=== PATIENT | female | born 1960 | race Caucasian/White ===

== ENCOUNTER 2017-11-14 08:03 | Outpatient (CLI) | payer OTHER ==
[2017-11-14 12:49] LABS: CHOLESTEROL 238 mg/dL; GLUCOSE,FASTING 103 mg/dL (70-100); HDL CHOLESTEROL 40 mg/dL; LDL CHOLESTEROL,CALCULATED 171 mg/dL; LDL/HDL RATIO 4.3 (<4.4); VLDL CHOLESTEROL 27 mg/dL
== END 2017-11-14 08:04 | disposition home or self-care (01) ==
LOC: LAB.F 08:03
PROVIDERS: ATTEND Internal Medicine
DX: E78.5 Hyperlipidemia, unspecified (principal); R73.01 Impaired fasting glucose; E05.00 Thyrotoxicosis with diffuse goiter without thyrotoxic crisis or storm
CPT/HCPCS: 36415; 80061; 82947; 83721; 84443

== ENCOUNTER 2017-11-27 10:57 | Outpatient (CLI) | payer OTHER ==
--- NOTE | 2017-12-10 14:11 | Mammography Report ---
DIGITAL SCREENING MAMMOGRAM: 11/27/2017 CLINICAL INDICATION: A 57-year-old, for screening. COMPARISON: Films from [place], [place] dated 11/12/2015, 09/14/2011, 07/01/2010, 06/28/2009, 06/24/2008. TECHNIQUE: Routine CC and MLO projections were obtained of the breasts. Bilateral laterally exaggerated craniocaudal views. FINDINGS: The breasts again demonstrate heterogeneously dense fibroglandular parenchyma bilaterally. Coarse and punctate, typically benign calcifications are present. No suspicious masses, clustered microcalcifications, or regions of architectural distortion are identified. There is a shifting pattern of circumscribed nodules bilaterally, compatible with waxing and waning cysts. IMPRESSION: BENIGN FINDINGS. RECOMMENDATION: ROUTINE ANNUAL SCREENING UNLESS OTHERWISE CLINICALLY INDICATED. BIRADS CATEGORY 2-BENIGN FINDINGS. STANDARD QUALIFYING STATEMENTS: 1. This examination was reviewed with the aid of Computer-Aided Detection (CAD). 2. A negative or benign imaging report should not delay biopsy if clinically suspicious findings are present. Consider surgical consultation if warranted. More than 5% of cancers are not identified by imaging. 3. Dense breasts may obscure an underlying neoplasm. TD: 12/10/2017 14:09
== END 2017-11-27 10:58 | disposition home or self-care (01) ==
LOC: DI.S 10:57
PROVIDERS: ATTEND Internal Medicine
DX: Z12.31 Encounter for screening mammogram for malignant neoplasm of breast (principal)
CPT/HCPCS: 77067

== ENCOUNTER 2024-05-13 10:35 | Outpatient (CLI) | payer OTHER ==
--- NOTE | 2024-05-14 10:50 | Mammography Report ---
BILATERAL DIGITAL SCREENING MAMMOGRAM 3D/2D: 05/13/2024 CLINICAL: Routine screening. Comparison is made to exams dated: 11/27/2017 mammogram - [facility] and 11/12/2015 mammogram - Outside facility. Both breasts are heterogeneously dense, which may obscure small masses (category c / 51-75% glandular tissue). There is a benign focal asymmetry in the right breast. No significant masses, calcifications, or other findings are seen in either breast. There has been no significant interval change. IMPRESSION: BENIGN There is no mammographic evidence of malignancy. A 1 year screening mammogram is recommended. Based on the Tyrer Cuzick model (a risk assessment model) the patient's lifetime risk is 12.4% and he r 10 year risk is 5.7%. According to the ACR, ACS, and NCCN guidelines, an annual breast MRI exam [place] ng with mammogram is recommended if the patient's lifetime risk is 20% or greater. This exam was interpreted at Station ID: [id number]. NOTE: For mammograms, a report in lay terms will be sent to the patient. Approximately 15% of breast malignancies will not be visualized mammographically. In the management of a palpable breast mass, a negative mammogram must not discourage biopsy of a clinically suspicious lesion. Electronically Signed By: Pratima barajas/kay:05/13/2024 12:35:50 letter sent: No_Letter ACR BI-RADS Category 2: Benign Finding(s) 3342F PARENCHYMAL PATTERN: (D) - The breast(s) demonstrate(s) heterogeneously dense fibroglandular lalita quijano. BI-RADS CATEGORY: (2) - 2 RECOMMENDATION: (ANNUAL) - Recommend routine annual screening mammography. [id number] 1 year screening LATERALITY: (B)
== END 2024-05-13 10:36 | disposition home or self-care (01) ==
LOC: DI.S 10:35
DX: Z12.31 Encounter for screening mammogram for malignant neoplasm of breast (principal); R92.333 Mammographic heterogeneous density, bilateral breasts

== ENCOUNTER 2024-05-19 13:34 | Outpatient (CLI) | payer OTHER ==
--- NOTE | 2024-05-19 15:31 | MRI Report ---
PROCEDURE: Shoulder LT WO INDICATIONS: L SHOULDER ADHESIVE CAPSULITIS TECHNIQUE: Noncontrast oblique coronal T2 fast spin echo with fat saturation, oblique sagittal T1 spin echo and T2 fast spin echo with fat saturation, axial T1 spin echo and T2 fast spin echo with fat saturation t hrough the shoulder. COMPARISON: None. FINDINGS: Image quality: Excellent. Rotator cuff: There is low-grade intrasubstance tearing of the anterior, mid, and posterior supraspin atus as well as the anterior infraspinatus tendon at the humeral insertion site extending the muscula r tendinous junction. Low-grade intrasubstance and articular surface tearing of the mid and inferior subscapularis tendon at the humeral insertion site extending the muscular tendinous junction. Teres m inor is intact. No rotator cuff muscle atrophy on sagittal images. Bones and bursae: No bone marrow contusions or fractures. Moderate acromioclavicular joint degenerat ion. The acromion demonstrates conventional anatomy, without an os acromiale. No pathologic subacro mial/subdeltoid bursal fluid is present. Capsule and soft tissues: In the absence of intra-articular contrast, the labrum and glenohumeral li gaments appear intact. The long head of the biceps tendon demonstrates normal location and morpholog y. The rotator interval appears normal, without fibrosis. The coracohumeral ligament is normal in t hickness. IMPRESSION: 1. Partial-thickness tearing of the supraspinatus, infraspinatus, and subscapularis tendons. No full- thickness rotator cuff tear. 2. Acromioclavicular joint osteoarthritis. Reviewed by: Mike Royal MD on 05/19/2024 3:30 PM PDT Approved by: Mike Royal MD on 05/19/2024 3:30 PM PDT Station ID: [id number]
== END 2024-05-19 13:35 | disposition home or self-care (01) ==
LOC: DI 13:34
PROVIDERS: ATTEND Orthopaedic Surgery
DX: M75.112 Incomplete rotator cuff tear or rupture of left shoulder, not specified as traumatic (principal); M19.012 Primary osteoarthritis, left shoulder